=== PATIENT | female | born 1955 | race African-American/Black ===

== ENCOUNTER 2016-11-21 08:37 | Emergency (ER) | payer OTHER ==
[~2016-11-21] VITALS: Ht 170.2 cm; Wt 100.0 kg
[2016-11-21] MEDS ORDERED: WARF2TAB57 PO (08:48)
[2016-11-21] MEDS ORDERED: LOSA50TA20 PO (08:51)
[2016-11-21] MEDS ORDERED: ATOR20TA65 PO (08:51)
[2016-11-21] MEDS ORDERED: ACETAMINOPHEN WITH CODEINE 300/30MG TABLET PO ONE (10:15)
[2016-11-21 10:31] VITALS: BP 172/82
== END 2016-11-21 10:31 | disposition home or self-care (01) ==
LOC: ER 09:13
DX: M25.512 Pain in left shoulder (principal); E78.00 Pure hypercholesterolemia, unspecified; R51 Headache; I10 Essential (primary) hypertension; M32.9 Systemic lupus erythematosus, unspecified; Z90.49 Acquired absence of other specified parts of digestive tract; Z88.6 Allergy status to analgesic agent; W18.39XA Other fall on same level, initial encounter; Y93.89 Activity, other specified; Y92.89 Other specified places as the place of occurrence of the external cause; Y99.8 Other external cause status
CPT/HCPCS: 70450; 73030; 99284